=== PATIENT | male | born 1975 | race Caucasian/White ===

== ENCOUNTER 2016-09-27 17:51 | Emergency (ER) | payer OTHER ==
[~2016-09-27] VITALS: Ht 175.3 cm; Wt 120.2 kg
[2016-09-27 18:01] VITALS: TEMP 36.7; Ht 175.3 cm; Wt 120.2 kg
[2016-09-27 19:36] LABS: BASO % 0.5 %; BASO ABS # 0.03 K/uL (0-0.2); COMPLETE YES; EOS % 1.4 %; HEMATOCRIT 44.3 % (42-52); IG% 0.2 %; LYMPH % 39.6 %; LYMPH ABS # 2.49 K/uL (1.2-3.4); MEAN CELL VOLUME 89.3 fL (80-100); MEAN CORPUSCULAR HEMOGLOBIN 32.7 pg (25-34); MEAN CORPUSCULAR HGB CONC 36.6 g/dl (32-36); MEAN PLATELET VOLUME 9.6 fL (7.4-10.4); MONO % 9.6 %; NEUT % 48.7 %; PLATELET COUNT 234 K/uL (130-400); RED BLOOD COUNT 4.96 M/uL (4.7-6.1); WHITE BLOOD COUNT 6.28 K/uL (4.8-10.8)
--- NOTE | 2016-09-27 19:41 | DIAGNOSTIC IMAGING REPORT ---
CHEST ONE VIEW PORTABLE CLINICAL HISTORY: Chest pain. COMPARISON STUDY: No previous studies for comparison. FINDINGS: Lung volumes are at the lower limits of normal. There is no consolidation to suggest pneumonia. Pulmonary vascularity is normal. There is no pneumothorax or pleural effusion. Cardiac size is at the upper limits of normal. There is no evidence of pneumomediastinum. IMPRESSION: No acute cardiopulmonary findings. Electronically signed by: Wesley Neumann M.D. 09/27/2016 7:39 PM Dictated Date/Time: 09/27/2016 7:39 PM
[2016-09-27] MEDS ORDERED: IBUP-103 PO (19:48)
[2016-09-27] MEDS ORDERED: PRLSR20 PO (19:48)
[2016-09-27 20:01] LABS: BUN/CREATININE RATIO 16.5 (10-20); CALCIUM 8.6 mg/dl (8.5-10.1); POTASSIUM 3.8 mmol/L (3.5-5.1)
[2016-09-27 20:06] LABS: CKMB/CK RATIO 1.5 (0-3.0)
[2016-09-27 23:55] VITALS: BP 129/86; PULSE 64; O2SAT 99
--- NOTE | 2016-09-28 01:38 | EMERGENCY ROOM VISIT NOTE ---
History Report prepared by Aníbal: Jahaira Rodriguez Under the Supervision of: Dr. Larry Barroso M.D. First contact with patient: 19:08 Chief Complaint: CARDIAC ASSESSMENT Stated Complaint: CHEST PAIN BOTH ARMS,NUMB AND DIZZY Nursing Triage Summary: Pt reports yesterday at 1030 he was walking and developed "chest numbness and numbess in both arms" episode lasted about 5 mins and he was also SOB Pt reports today he "just doesn't feel right" History of Present Illness The patient is a 41 year old male who presents to the Emergency Room with complaints of an episode of chest discomfort yesterday. He describes it as a pain and numbness that radiated across his chest and down his arms. He was sweaty, short of breath, and nauseated during the episode. His symptoms lasted about 5 minutes. Since the episode, he has not been feeling like himself. 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 The patient decided to come to the ED today after consulting with his and PCP. He chews tobacco. His mother and grandfather have histories of heart disease. The patient has a history of acid reflux. Pt denies LOC, headache, fevers, chills, diaphoresis, visual changes, neck pain, tearing pain radiating to the back, personal history or family history of aneurysm or pulmonary embolism, uncontrolled hypertension, leg swelling, coagulation abnormalities, prolonged travel, recent surgery or immobilization, vomiting, abdominal pain, melena, hematochezia, urinary symptoms, weakness, lymphadenopathy, rash, or other complaints. Source of History: patient Onset: yesterday Position: chest Quality: numbness, other (pain) Timing: resolved Associated Symptoms: + SOB, + nausea Note: Other symptoms: sweaty Review of Systems See HPI for pertinent positives and negatives. A total of ten systems were reviewed and were otherwise negative. Past Medical & Surgical Medical Problems: (1) No Known Active Medical Problems Family History Heart disease Social History Smoking Status: Never Smoker Smokeless Tobacco Use: Yes Marital Status: Housing Status: lives with significant other Occupation Status: employed Current/Historical Medications Scheduled Ibuprofen Tab (Advil), 600 MG PO PRN UD Omeprazole (Prilosec), 20 MG PO DAILY Allergies Coded Allergies: No Known Allergies (Unverified , 09/27/16) Physical Exam Vital Signs Date Time Temp Pulse Resp B/P Pulse Ox O2 Delivery O2 Flow Rate FiO2 09/27/16 23:55 64 18 129/86 99 Room Air 09/27/16 23:37 64 09/27/16 22:22 64 16 114/81 93 Room Air 09/27/16 20:49 63 18 143/78 96 Room Air 09/27/16 19:44 64 09/27/16 19:27 64 18 114/85 98 Room Air 09/27/16 18:01 36.7 75 20 127/81 96 Room Air 09/27/16 18:01 95 Room Air Physical Exam GENERAL: Awake, alert, well-appearing, in no distress HENT: Normocephalic, atraumatic. Oropharynx unremarkable. EYES: Normal conjunctiva. Sclera non-icteric. NECK: Supple. No nuchal rigidity. FROM. No JVD. RESPIRATORY: Clear to auscultation. CARDIAC: Regular rate, normal rhythm. Extremities warm and well perfused. Pulses equal. ABDOMEN: Soft, non-distended. No tenderness to palpation. No rebound or guarding. No masses. RECTAL: Deferred. MUSCULOSKELETAL: Chest examination reveals no tenderness. The back is symmetrical on inspection without obvious abnormality. There is no CVA tenderness to palpation. No joint edema. LOWER EXTREMITIES: Calves are equal size bilaterally and non-tender. No edema. No discoloration. NEURO: Normal sensorium. No sensory or motor deficits noted. SKIN: No rash or jaundice noted. Medical Decision & Procedures ER Provider Diagnostic Interpretation: Radiology results as stated below per my review and radiologist interpretation CHEST ONE VIEW PORTABLE CLINICAL HISTORY: Chest pain. COMPARISON STUDY: No previous studies for comparison. FINDINGS: Lung volumes are at the lower limits of normal. There is no consolidation to suggest pneumonia. Pulmonary vascularity is normal. There is no pneumothorax or pleural effusion. Cardiac size is at the upper limits of normal. There is no evidence of pneumomediastinum. IMPRESSION: No acute cardiopulmonary findings. Electronically signed by: Wesley Neumann M.D. 09/27/2016 7:39 PM Dictated Date/Time: 09/27/2016 7:39 PM Laboratory Results 09/27/16 19:30 Red Blood Count 4.96, Mean Corpuscular Volume 89.3, Mean Corpuscular Hemoglobin 32.7, Mean Corpuscular Hemoglobin Concent 36.6, Mean Platelet Volume 9.6, Neutrophils (%) (Auto) 48.7, Lymphocytes (%) (Auto) 39.6, Monocytes (%) (Auto) 9.6, Eosinophils (%) (Auto) 1.4, Basophils (%) (Auto) 0.5, Neutrophils # (Auto) 3.06, Lymphocytes # (Auto) 2.49, Monocytes # (Auto) 0.60, Eosinophils # (Auto) 0.09, Basophils # (Auto) 0.03 09/27/16 19:30 Test 09/27/16 19:30 09/27/16 23:22 White Blood Count 6.28 K/uL (4.8-10.8) Red Blood Count 4.96 M/uL (4.7-6.1) Hemoglobin 16.2 g/dL (14.0-18.0) Hematocrit 44.3 % (42-52) Mean Corpuscular Volume 89.3 fL (80-100) Mean Corpuscular Hemoglobin 32.7 pg (25-34) Mean Corpuscular Hemoglobin Concent 36.6 g/dl (32-36) Platelet Count 234 K/uL (130-400) Mean Platelet Volume 9.6 fL (7.4-10.4) Neutrophils (%) (Auto) 48.7 % Lymphocytes (%) (Auto) 39.6 % Monocytes (%) (Auto) 9.6 % Eosinophils (%) (Auto) 1.4 % Basophils (%) (Auto) 0.5 % Neutrophils # (Auto) 3.06 K/uL (1.4-6.5) Lymphocytes # (Auto) 2.49 K/uL (1.2-3.4) Monocytes # (Auto) 0.60 K/uL (0.11-0.59) Eosinophils # (Auto) 0.09 K/uL (0-0.5) Basophils # (Auto) 0.03 K/uL (0-0.2) RDW Standard Deviation 40.5 fL (36.4-46.3) RDW Coefficient of Variation 12.6 % (11.5-14.5) Immature Granulocyte % (Auto) 0.2 % Immature Granulocyte # (Auto) 0.01 K/uL (0.00-0.02) Bedside D-Dimer 69 ng/mlFEU (0-450) Anion Gap 9.0 mmol/L (3-11) Est Creatinine Clear Calc Drug Dose 123.2 ml/min Estimated GFR () 107.1 Estimated GFR (Non- 92.4 BUN/Creatinine Ratio 16.5 (10-20) Calcium Level 8.6 mg/dl (8.5-10.1) Total Bilirubin 0.6 mg/dl (0.2-1) Direct Bilirubin 0.1 mg/dl (0-0.2) Aspartate Amino Transf (AST/SGOT) 33 U/L (15-37) Alanine Aminotransferase (ALT/SGPT) 81 U/L (12-78) Alkaline Phosphatase 65 U/L (45-117) Total Creatine Kinase 504 U/L (39-308) Creatine Kinase MB 7.7 ng/ml (0.5-3.6) Creatine Kinase MB Ratio 1.5 (0-3.0) Total Protein 6.6 gm/dl (6.4-8.2) Albumin 4.0 gm/dl (3.4-5.0) Lipase 262 U/L (73-393) Bedside Troponin I 0.000 ng/ml (0-0.045) Laboratory results reviewed by me ECG Indication: chest pain Rate (beats per minute): 71 Rhythm: normal sinus Findings: no acute ischemic change, no ectopy, other (LVH) Change: Repeat EKG: Normal sinus at 63 BPM. LVH. No ischemia or ectopy. ED Course 1922: The patient was evaluated in room C9. A complete history and physical exam was performed. 2044: I reassessed the patient. He was doing well. 2309: I reassessed the patient. He agreed to a repeat troponin. 0020: I reevaluated the patient. Discussed results and discharge instructions: He verbalized understanding and agreement. The patient is ready for discharge. Medical Decision Triage Nursing notes reviewed. The patient's presentation and history were concerning for chest pain. Etiologies such as cardiac ischemia, aortic dissection, pulmonary embolism, pneumonia, pneumothorax, musculoskeletal, infections, gastrointestinal, as well as others were entertained. The patient was evaluated. He was doing well. He had chest pain yesterday when he was moving drywall. He waited until late this evening to come to the hospital. His symptoms occurred well over 24 hours ago. He had 2 ECGs that were unremarkable. His CBC, chemistry panel, d-dimer, LFTs were unremarkable. The patient had a mild elevation of total CK. He does not doing a lot of lifting. I suspect that this may be the cause. His troponin was unremarkable 3. The patient is doing well and is at low risk. He'll take aspirin a day. Case management did meet with the patient and will try to coordinate outpatient stress testing tomorrow. The patient has any recurrent chest pain will come back to emergency department. He was told to take it easy. He was given a work note.I gave my usual and customary discussion regarding this issue. By the evaluation outlined above other emergent etiologies such as those listed in the differential, as well as others, were deemed relatively unlikely. The patient and were informed about the findings as listed above. All questions were answered and they were pleased with the treatment. Return instructions were outlined and the patient was discharged in stable condition. The patient was referred to cardiology and his PCP for follow-up for a recheck of the current condition. The chart was completed utilizing [employer] Speech voice recognition software. Grammatical errors, random word insertions, pronoun errors, and incomplete sentences are an occasional consequence of this system due to software limitations, ambient noise, and hardware issues. Any formal questions or concerns about the content, text, or information contained within the body of this dictation should be directly addressed to the physician for clarification. Impression Primary Impression: Substernal chest pain Scribe Attestation The scribe's documentation has been prepared under my direction and personally reviewed by me in its entirety. I confirm that the note above accurately reflects all work, treatment, procedures, and medical decision making performed by me. Departure Information Dispostion Home / Self-Care Referrals [place] Patient Instructions My [facility] Additional Instructions CHEST PAIN INSTRUCTIONS: Ibuprofen(Motrin, Advil) may be used for fever or pain. Use 600mg every six hours as needed. Take with food. Avoid using more than 2400mg in a 24 hour period. Do not use 2400mg per day for more than three consecutive days without physician direction. Prolonged inappropriate use can lead to stomach upset or ulcers. (AND/OR) Acetaminophen(Tylenol) may be used for fever or pain. Use 1000mg every six hours as needed. Avoid using more than 4000mg in a 24 hour period. Rest and drink plenty of fluids as tolerated. Continue current medications. No heavy lifting. Avoid strenuous activities and anything that worsens your pain. Resume normal activities once your symptoms resolve. Return to the ER immediately for worsening or persistent chest pain, abdominal pain, vomiting, fevers, chest pains, difficulty breathing, worsening of your condition, or as needed. Follow up with your primary physician in 2-3 days for a recheck of your current condition. Case management is going to coordinate an outpatient stress test. You should hear from them tomorrow. If you do not hear from case management by 10 AM call back to the emergency department at [phone].
== END 2016-09-28 00:43 | disposition home or self-care (01) ==
LOC: C.EDB 17:53 → C.EDC 09-28 00:43
DX: R07.2 Precordial pain (principal); Z82.49 Family history of ischemic heart disease and other diseases of the circulatory system